=== PATIENT | female | born 1990 | race Two or more races ===

== ENCOUNTER 2022-01-25 12:45 | Outpatient (CLI) | payer OTHER, SELFPAY ==
--- NOTE | 2022-01-30 14:27 | WPDHOLTEREM ---
Holter/Event Monitor Holter/Event Monitor Date of procedure: 01/25/22 Holter/Event Procedure: 48 Hr Holter Monitor Diagnosis: Palpitations Indications: Palpitations Image/Tracing Quality: Adequate Findin. Patient wore Holter monitor for total of 47 hr 59 min 2. The average heart rate was 72bpm. The minimum heart rate was 47bpm (sinus bradycardia). The maximum heart rate was 129bpm (sinus tachycardia). Sinus arrhythmia noted as well. 3. Patient reported 2 chest pain/pressure episodes that correlated with sinus rhythm. 4. Patient reported headache that correlated with sinus rhythm. 5. Patient reported 1 chest pain/pressure episode that correlated with sinus tachycardia. 6. Patient reported episode of small pinching near ribs that correlated with sinus rhythm. 7. There are occasional PACs (<1%) Conclusion: 1. Predominantly sinus rhythm. The average heart rate was 72bpm. The minimum heart rate was 47bpm (sinus bradycardia). The maximum heart rate was 129bpm (sinus tachycardia). Sinus arrhythmia noted as well. 2. Occasional PACs (<1%). 3. No evidence of atrial fibrillation. 4. No evidence of ventricular arrhythmias.
== END 2022-01-25 12:46 | disposition home or self-care (01) ==
LOC: ANHCARD 12:47
PROVIDERS: Visit Provider Physician Assistant
DX: R00.2 Palpitations (principal)
CPT/HCPCS: 93225; 93226

== ENCOUNTER 2022-11-26 22:24 | Emergency (ER) | payer OTHER, SELFPAY ==
[2022-11-26 22:34] VITALS: BP 120/69; PULSE 76; RESP 20; TEMP 37; O2SAT 100
[2022-11-26 22:58] LABS: Basophils Absolute Auto 0.1 K/mm3 (0.0-0.1); Basophils Percent Auto 0.6 % (0.2-1.2); Eosinophils Absolute Auto 0.3 K/mm3 (0-0.3); Eosinophils Percent Auto 2.2 % (0-4.4); Hematocrit 36.5 % (37.0-47.0); Hemoglobin 11.6 g/dL (12.0-15.0); Immature Granulocyte Absolute 0.03 K/mm3 (0.00-0.031); Immature Granulocyte Percent A 0.2 % (0-0.5); Lymphocytes Absolute Auto 3.46 K/mm3 (0.9-3.2); Lymphocytes Percent Auto 27.9 % (18.3-44.2); Mean Corpuscular HGB Conc 31.8 g/dl (32-36); Mean Corpuscular Volume 94.3 fl (80-100); Mean Platelet Volume 10.1 fl (7.4-10.4); Monocytes Absolute Auto 0.8 K/mm3 (0.1-0.6); Monocytes Percent Auto 6.2 % (2.6-8.5); Neutrophils Absolute Auto 7.8 K/mm3 (1.3-6.7); Neutrophils Percent Auto 62.9 % (45.5-73.1); Platelet Count Result 395 k/mm3 (150-375); Red Blood Count 3.87 M/mm3 (4.2-5.4); Red Cell Distribution Width 12.8 % (11.5-14.5); White Blood Count 12.4 K/mm3 (4.5-10.0)
[2022-11-26 23:10] LABS: Alanine Aminotransferase 18 U/L (6-35); Albumin Level 4.5 g/dL (3.5-5.1); Alkaline Phosphatase 72 U/L (38-126); Anion Gap 7 mmol/L (8-16); Aspartate Amino Transferase 19 U/L (14-36); Bilirubin,Total 0.3 mg/dL (0.2-1.3); Blood Urea Nitrogen 6 mg/dL (7-17); Calcium 8.9 mg/dL (8.4-10.2); Carbon Dioxide 24 mmol/L (22-30); Chloride 106 mmol/L (98-107); Estimated CRCL calculation 93 ml/min; Estimated Glomerular Filt Rate > 60; Glucose 101 mg/dL (65-110); Lipase 62 U/L (23-300); Potassium 3.7 mmol/L (3.4-5.0); Sodium 137 mmol/L (137-145)
[2022-11-26 23:15] LABS: Add Urine Microscopic? YES; Appearance Urine Cloudy (Clear); Bacteria Urine 2+ /hpf; Bilirubin Urine Negative (Negative); Blood Urine Negative (Negative); Color Urine Yellow (Yellow); Glucose Urine UA Negative (Negative); Ketones Urine Negative (Negative); Leukocyte Esterase Ur 1+ LEU/UL (Negative); Need Manual Microscopic Reviewed; Nitrate Urine Negative (Negative); Non Pathogenic Casts 0-2; Protein Urine Negative (Negative); Specific Grav Ur 1.018 (1.001-1.035); Squamous Epithelial Cell Urine Moderate /hpf (Few); WBC Urine 0-5 /hpf
--- NOTE | 2022-11-27 01:15 | PC.NURSE ---
pt. walked out of ed w/ steady gait. pt. NAD upon departure.
== END 2022-11-27 01:15 | disposition left against medical advice (07) ==
LOC: ANHED 11-27 01:14
PROVIDERS: Emergency Provider Emergency Medicine
DX: R10.31 Right lower quadrant pain (principal)
CPT/HCPCS: 36415; 80053; 81001; 81025; 83690; 85025; 99199